=== PATIENT | female | born 1980 | race Caucasian/White ===

== ENCOUNTER 2017-07-17 15:25 | Emergency (ER) | payer SELFPAY ==
[2017-07-17 15:31] VITALS: BP 131/74
--- NOTE | 2017-07-17 15:50 | UC ---
Abdominal Pain Female HPI - HPI Summary HPI Summary: 37 FEMALE PRESENTS WITH SEVERE LLQ PAIN. I WILL SEND HER TO THE ER TO RULE OUT DIVERTICULITIS. - History of Current Complaint Chief Complaint: UCAbdominalPain Stated Complaint: ABDOMINAL PAIN Time Seen by Provider: 07/17/17 15:45 Hx Obtained From: Patient Hx Last Menstrual Period: 06/22/17 Onset/Duration: Sudden Onset Severity Initially: Moderate Severity Currently: Moderate Pain Scale Used: 0-10 Numeric - 8 Location: Discrete At: RLQ Character: Sharp, Tearing Aggravating Factor(s): Nothing Alleviating Factor(s): Nothing Allergies/Adverse Reactions: Allergies Allergy/AdvReac Type Severity Reaction Status Date / Time No Known Allergies Allergy Verified 07/17/17 16:22 PMH/Surg Hx/FS Hx/Imm Hx Previously Healthy: Yes - Surgical History Surgical History: None Surgery Procedure, Year, and Place: ; left 3rd finger pins placed - Family History Known Family History: Positive: None - Social History Alcohol Use: Occasionally Alcohol Amount: 2 beers a week Substance Use Type: None Smoking Status (MU): Light Every Day Tobacco Smoker Type: Cigarettes Amount Used/How Often: 3 cigs daily - Immunization History Most Recent Influenza Vaccination: fall Review of Systems Constitutional: Negative Skin: Negative Eyes: Negative ENT: Negative Respiratory: Negative Cardiovascular: Negative Gastrointestinal: Abdominal Pain - LLQ Genitourinary: Negative Motor: Negative Neurovascular: Negative Musculoskeletal: Negative Neurological: Negative Psychological: Negative All Other Systems Reviewed And Are Negative: Yes Physical Exam Triage Information Reviewed: Yes Vital Signs: Initial Vital Signs Temp 37.0 C 07/17/17 15:28 Pulse 96 07/17/17 15:28 Resp 20 07/17/17 15:28 BP 131/74 07/17/17 15:28 Pulse Ox 100 07/17/17 15:28 Vital Signs Reviewed: Yes Eye Exam: Normal ENT Exam: Normal Dental Exam: Normal Neck exam: Normal Neck: Positive: 1 Respiratory Exam: Normal Cardiovascular Exam: Normal Abdomen Description: Positive: Other: - LLQ PAIN Musculoskeletal Exam: Normal Neurological Exam: Normal Psychological Exam: Normal Skin Exam: Normal Abd Pain Female Course/Dx - Differential Dx/Diagnosis Provider Diagnoses: LLQ PAIN Discharge - Discharge Plan Condition: Stable Disposition: HOME Patient Education Materials: Acute Abdominal Pain (ED) Referrals: No Primary Care Phys,NOPCP [Primary Care Provider] - Additional Instructions: PATIENT SUGGESTED TO GO TO ER TO RULE OUT DIVERTICULITIS.
== END 2017-07-17 16:00 | disposition home or self-care (01) ==
LOC: UCEAST 15:25
DX: R10.32 Left lower quadrant pain (principal); F17.210 Nicotine dependence, cigarettes, uncomplicated
CPT/HCPCS: 99211; G0463

== ENCOUNTER 2017-07-17 16:16 | Emergency (ER) | payer SELFPAY ==
[2017-07-17] MEDS ORDERED: Ondansetron ODT TAB* 4 MG PO ONE (17:49)
[2017-07-17 18:38] LABS: Hematocrit 42 % (35-47); Hemoglobin 14.5 g/dl (12.0-16.0); Mean Corpuscular HGB Conc 34 g/dl (31-36); Mean Corpuscular Hemoglobin 32 pg (27-31); Mean Corpuscular Volume 92 fL (80-97); Mean Platelet Volume 7 um3 (7.4-10.4); Red Cell Distribution Width 13 % (10.5-15); White Blood Count 11.6 10^3/ul (3.5-10.8)
[2017-07-17 18:56] LABS: ALT 14 U/L (7-52); AST 14 U/L (13-39); Albumin 4.5 g/dL (3.2-5.2); Alkaline Phosphatase 59 U/L (34-104); Anion Gap 6 mmol/L (2-11); BUN/Creatinine Ratio 15.3 (8-20); Blood Urea Nitrogen 13 mg/dL (6-24); C Reactive Protein 5.16 mg/L (< 5.00); CO2 Carbon Dioxide 24 mmol/L (22-32); Calcium 9.4 mg/dL (8.6-10.3); Chloride 105 mmol/L (101-111); EGFR African American 96.3 (>60); EGFR Non-African American 74.9 (>60); Globulin 3.4 g/dL (2-4); Glucose 90 mg/dL (70-100); Lipase 18 U/L (11.0-82.0); Sodium 135 mmol/L (133-145); Total Protein 7.9 g/dL (6.4-8.9)
[2017-07-17 20:14] LABS: Urine Bacteria Absent (Absent)
[2017-07-17 20:15] LABS: Urine Bilirubin Negative (Negative); Urine Glucose Negative (Negative); Urine Nitrite Negative (Negative)
[2017-07-17] MEDS ORDERED: Ketorolac INJ* 30 MG/ML 1 ML VIAL IV ONE (20:20)
[2017-07-17] MEDS ORDERED: NS 0.9% 1000 ML* 2,000 ML IV ONE (20:20)
[2017-07-17] MEDS ORDERED: Ondansetron INJ* 2 MG/ML VIAL IV ONE (20:20)
[2017-07-17 20:42] VITALS: BP 127/87
--- NOTE | 2017-07-17 21:25 | RAD ---
HISTORY: Lower abdominal pain, left lower quadrant pain COMPARISONS: None TECHNIQUE: Multiple transverse and longitudinal ultrasound images were obtained of the pelvis using grayscale, color Doppler, and spectral Doppler imaging using the endovaginal transducer. FINDINGS: UTERUS: The uterus measures 8.6 x 4.1 x 5.1 cm. There is a myometrial and some mucosal fibroid of the posterior body towards the fundus, measuring 2.3 x 2.3 x 2.3 cm ENDOMETRIUM: The endometrial stripe is smooth. The endometrium measures 0.3 cm in thickness. CUL-DE-SAC: There is no free fluid within the cul-de-sac. RIGHT OVARY: The right ovary measures 1.9 x 1.4 x 1.4 cm. Normal arterial and venous waveforms are identifiable within the ovary on spectral Doppler imaging. LEFT OVARY: The left ovary measures 2.7 x 1.9 x 1.5 cm. Normal arterial and venous waveforms are identifiable within the ovary on spectral Doppler imaging. BLADDER: The bladder is not well visualized. OTHER: None IMPRESSION: FIBROID UTERUS. NO SONOGRAPHIC FEATURES OF TORSION. PLEASE NOTE THAT PARTIAL OR INTERMITTENT TORSION MAY BE SONOGRAPHICALLY NORMAL.
[2017-07-17] MEDS ORDERED: Iohexol 300* (CONTRAST) 10 ML SDV IV ONE (22:36)
[2017-07-18] MEDS ORDERED: Omeprazole CAP* 20 MG PO ONE (00:56)
--- NOTE | 2017-07-18 01:04 | ED ---
Yovany Gaspar Nikita, scribed for Juan C Mendoza MD on 07/17/17 at 2017 . Abdominal Pain/Female - HPI Summary HPI Summary: This patient is a 37 year old F presenting to ED with a chief complaint of LLQ abdominal pain since 1 week ago. Before visit, pt was at [facility] for symptoms. Pt was sent to ED to r/o diverticulitis. The CC is described as constant with waxing and waning, sharp (yesterday), and causing pt to double over. Now, pain is present in RLQ and suprapubic region. The patient rates the pain >10/10 in severity at its worst. Usually pain rates at 3-5/10. Symptoms aggravated by laying on L side and movement. Symptoms alleviated by nothing. Patient reports N /V due to acid reflux. Patient denies vaginal discharge, fever, chills, bowel symptoms, melena, urinary symptoms (dysuria), cough, congestion, and rashes. LMP is Jun 26. Pt has 2 children. PSHx of . Pt denies hx of ovarian cysts. - History of Current Complaint Chief Complaint: EDAbdPain Stated Complaint: ABD PAIN/VOMITING Time Seen by Provider: 07/17/17 20:01 Hx Obtained From: Patient Hx Last Menstrual Period: 06/26/17 Onset/Duration: Sudden Onset, Lasting Weeks - 1 week ago Timing: Constant - waxing and waning Severity Initially: Moderate Severity Currently: Moderate - at worst, pain is >10/10 Pain Intensity: 5 Pain Scale Used: 0-10 Numeric Location: Discrete At: RLQ, Discrete At: LLQ - where pain is worst, Suprapubic Radiates: No Character: Sharp, Other: - causing pt to "double over" Aggravating Factor(s): Movement, Other: - laying on L side Alleviating Factor(s): Nothing Associated Signs and Symptoms: Positive: Other: - Patient reports N/V due to acid reflux. Patient denies vaginal discharge, fever, chills, bowel symptoms, melena, urinary symptoms (dysuria), cough, congestion, and rashes. Allergies/Adverse Reactions: Allergies Allergy/AdvReac Type Severity Reaction Status Date / Time No Known Allergies Allergy Verified 07/17/17 16:22 PMH/Surg Hx/FS Hx/Imm Hx Endocrine/Hematology History: Denies: Hx Diabetes, Hx Thyroid Disease Cardiovascular History: Denies: Hx Hypertension Respiratory History: Reports: Hx Asthma Denies: Hx Chronic Obstructive Pulmonary Disease (COPD) GI History: Denies: Hx Ulcer - Surgical History Surgery Procedure, Year, and Place: ; left 3rd finger pins placed Infectious Disease History: No Infectious Disease History: Denies: Hx Clostridium Difficile, Hx Hepatitis, Hx Human Immunodeficiency Virus (HIV), Hx of Known/Suspected MRSA, Hx Shingles, Hx Tuberculosis, Hx Known/ Suspected VRE, Hx Known/Suspected VRSA, History Other Infectious Disease, Traveled Outside the [place] in Last 30 Days - Family History Known Family History: Negative: Cardiac Disease, Hypertension, Diabetes - Social History Alcohol Use: Occasionally Alcohol Amount: 2 beers a week Substance Use Type: Reports: None Smoking Status (MU): Light Every Day Tobacco Smoker Type: Cigarettes Amount Used/How Often: 3 cigs daily Review of Systems Negative: Fever, Chills Positive: Other - Negative: congestion Negative: Cough Positive: Abdominal Pain - RLQ, suprapubic region, worst at LLQ, Vomiting, Nausea, Other - Negative: bowel symptoms, melena Positive: no symptoms reported. Negative: dysuria, discharge Negative: Rash All Other Systems Reviewed And Are Negative: Yes Physical Exam - Summary Physical Exam Summary: General: well-appearing, mild to moderate pain distress Skin: warm, color reflects adequate perfusion, dry Head: normal Eyes: EOMI, SOFYA ENT: normal Neck: supple, nontender Respiratory: CTA, breath sounds present Cardiovascular: RRR Abdomen: soft, Tender in LLQ, RLQ, and suprapubic region, worst in LLQ Bowel: positive bowel sounds : no vaginal discharge Musculoskeletal: normal, strength/ROM intact, No CVA tenderness Neurological: normal, sensory/motor intact, A&O x3 Psychological: affect/mood appropriate Pt is not worried about an STI. Triage Information Reviewed: Yes Vital Signs On Initial Exam: Initial Vitals Temp Pulse Resp BP Pulse Ox 98.4 F 90 16 135/87 98 07/17/17 16:19 07/17/17 16:19 07/17/17 16:19 07/17/17 16:19 07/17/17 16:19 Vital Signs Reviewed: Yes Diagnostics - Vital Signs Vital Signs Temp Pulse Resp BP Pulse Ox 07/17/17 19:27 96.9 F 63 17 120/93 98 07/17/17 16:19 98.4 F 90 16 135/87 98 - Laboratory Lab Results: Lab Results 07/17/17 07/17/17 07/17/17 Range/Units 18:29 18:29 18:29 WBC 11.6 H (3.5-10.8) 10^3/ul RBC 4.60 (4.0-5.4) 10^6/ul Hgb 14.5 (12.0-16.0) g/dl Hct 42 (35-47) % MCV 92 (80-97) fL MCH 32 H (27-31) pg MCHC 34 (31-36) g/dl RDW 13 (10.5-15) % Plt Count 327 (150-450) 10^3/ul MPV 7 L (7.4-10.4) um3 Neut % (Auto) 63.6 (38-83) % Lymph % (Auto) 29.0 (25-47) % [place] % (Auto) 5.6 (1-9) % Eos % (Auto) 1.3 (0-6) % Baso % (Auto) 0.5 (0-2) % Absolute Neuts (auto) 7.4 (1.5-7.7) 10^3/ul Absolute Lymphs (auto) 3.4 (1.0-4.8) 10^3/ul Absolute Monos (auto) 0.7 (0-0.8) 10^3/ul Absolute Eos (auto) 0.1 (0-0.6) 10^3/ul Absolute Basos (auto) 0.1 (0-0.2) 10^3/ul Absolute Nucleated RBC 0 10^3/ul Nucleated RBC % 0 Sodium 135 (133-145) mmol/L Potassium 4.0 (3.5-5.0) mmol/L Chloride 105 (101-111) mmol/L Carbon Dioxide 24 (22-32) mmol/L Anion Gap 6 (2-11) mmol/L BUN 13 (6-24) mg/dL Creatinine 0.85 (0.51-0.95) mg/dL Est GFR ( Amer) 96.3 (>60) Est GFR (Non-Af Amer) 74.9 (>60) BUN/Creatinine Ratio 15.3 (8-20) Glucose 90 (70-100) mg/dL Lactic Acid 1.0 (0.5-2.0) mmol/L Calcium 9.4 (8.6-10.3) mg/dL Total Bilirubin 0.40 (0.2-1.0) mg/dL AST 14 (13-39) U/L ALT 14 (7-52) U/L Alkaline Phosphatase 59 (34-104) U/L C-Reactive Protein 5.16 H (< 5.00) mg/L Total Protein 7.9 (6.4-8.9) g/dL Albumin 4.5 (3.2-5.2) g/dL Globulin 3.4 (2-4) g/dL Albumin/Globulin Ratio 1.3 (1-3) Lipase 18 (11.0-82.0) U/L Result Diagrams: 07/17/17 18:29 07/17/17 18:29 Lab Statement: Any lab studies that have been ordered have been reviewed, and results considered in the medical decision making process. - CT abd/pel CT Interpretation Completed By: Radiologist - No bowel obstruction, colitis, diverticulitis, free fluid or free air. Normal appendix. Unremarkable pancreas, kidneys, and gallbladder. Small right renal stone seen on 10/19/03 no longer seen. Subcentimeter right hepatic cyst or hemangioma. 1.1 cm corpus luteum left ovary. ED physician has reviewed this radiology report and agrees. - Ultrasound No standard instances Ultrasound Interpretation Completed By: Radiologist - Transvaginal US: FIBROID UTERUS. NO SONOGRAPHIC FEATURES OF TORSION. PLEASE NOTE THAT PARTIAL OR INTERMITTENT TORSION MAY BE SONOGRAPHICALLY NORMAL. ED physician has reviewed this radiology report and agrees. Abdominal Pain Fem Course/Dx - Course Course Of Treatment: This patient is a 37 year old F presenting to ED with a chief complaint of LLQ abdominal pain since 1 week ago. Before visit, pt was at [facility] for symptoms. Pt was sent to ED to r/o diverticulitis. The CC is described as constant with waxing and waning, sharp (yesterday), and causing pt to double over. Now, pain is present in RLQ and suprapubic region. The patient rates the pain >10/10 in severity at its worst. Usually pain rates at 3-5/10. Symptoms aggravated by laying on L side and movement. Symptoms alleviated by nothing. Patient reports N/V due to acid reflux. Patient denies vaginal discharge, fever, chills, bowel symptoms, melena, urinary symptoms (dysuria), cough, congestion, and rashes. Transvaginal US reveals FIBROID UTERUS. NO SONOGRAPHIC FEATURES OF TORSION. PLEASE NOTE THAT PARTIAL OR INTERMITTENT TORSION MAY BE SONOGRAPHICALLY NORMAL. Abdomen/Pelvis CT reveals No bowel obstruction, colitis, diverticulitis, free fluid or free air. Normal appendix. Unremarkable pancreas, kidneys, and gallbladder. Small right renal stone seen on 10/19/03 no longer seen. Subcentimeter right hepatic cyst or hemangioma. 1.1 cm corpus luteum left ovary. ED physician has reviewed this radiology report and agrees. In the ED course, pt was given fluids and pain medication. Medications reviewed. BP noted and advised to follow up with PCP. Pt will be discharged. Pt is agreeable with this plan. DISCUSSED RESULTS WITH PATIENT. NO EVIDENCE OF INFECTION. WILL TAKE IBUPROFEN OR ACETAMINOPHEN OTC. WILL TREAT FOR GERD; PATIENTHAS BEEN HAVING EPIGASTIC BURNING/GERD SX. F/U PMD; RETURN IF WORSE. NO CRITICAL CARE TIME. - Diagnoses Provider Diagnoses: Lower abdominal pain, GERD (gastroesophageal reflux disease) Discharge - Discharge Plan Condition: Stable Disposition: HOME Prescriptions: Omeprazole CAP* [Prilosec CAP* 20 MG] 20 mg PO BID #30 [email or web address]. Patient Education Materials: Abdominal Pain (ED), Gastroesophageal Reflux Disease (ED) Referrals: [facility] [[place]] No Primary Care Phys,NOPCP [Primary Care Provider] - Additional Instructions: FOLLOW UP WITH YOUR DOCTOR. RETURN TO THE EMERGENCY DEPARTMENT FOR ANY WORSENING OF YOUR CONDITION; PAIN, FEVER, VOMITING, YOU FEEL ILL OR QUESTIONS OR CONCERNS. The documentation as recorded by the Yovany mccoy Nikita accurately reflects the service I personally performed and the decisions made by me, Juan C Mendoza MD.
--- NOTE | 2017-07-18 07:52 | RAD ---
CLINICAL HISTORY: Lower abdominal pain, left lower quadrant pain, suprapubic pain, right lower quadrant pain COMPARISON: None TECHNIQUE: Multiple contiguous axial CT scans were obtained of the abdomen and pelvis after the administration of intravenous contrast. Coronal and sagittal multiplanar reformations are submitted for review. FINDINGS: LUNG BASES: The lung bases are clear. LIVER: The liver is diffusely low in attenuation compared to the spleen. There are no focal hepatic parenchymal masses. There is a simple cyst of the right lobe. BILE DUCTS: There is no intrahepatic or extrahepatic biliary dilatation. GALLBLADDER: The gallbladder is normal, without pericholecystic inflammatory change. PANCREAS: The pancreas is normal, without mass or ductal dilatation. SPLEEN: Normal in size and appearance. UPPER GI TRACT: Evaluation of the gastrointestinal tract is limited by incomplete gastric distention. The upper GI tract is unremarkable. SMALL BOWEL AND MESENTERY: The small bowel is normal in contour, course, and caliber. There is no obstruction or dilatation. COLON: The colon is normal in contour, course, caliber. There is no pericolonic inflammatory change. There is a tubular, vermiform, hollow viscus that is blind ending, and originates from the cecum, consistent with a normal appendix. There is no periappendiceal inflammatory change. This is best seen on axial images 51 through 61 ADRENALS: Normal bilaterally. KIDNEYS: The kidneys are normal in shape, size, contour, and axis. There is no hydronephrosis or nephrolithiasis. BLADDER: The bladder is smooth in contour. PELVIC ORGANS: There is left ovarian cyst. AORTA: The aorta is normal. IVC: Unremarkable LYMPH NODES: There is no lymphadenopathy by size criteria. ABDOMINAL WALL: There is a small fat-containing umbilical hernia. BONES AND SOFT TISSUES: There are mild diffuse degenerative changes. OTHER: None IMPRESSION: 1. NORMAL APPENDIX. 2. FATTY LIVER. 3. NO ACUTE CT PATHOLOGY OF THE VISUALIZED ABDOMEN OR PELVIS.
== END 2017-07-18 01:23 | disposition home or self-care (01) ==
LOC: ED 16:16
DX: R10.32 Left lower quadrant pain (principal); K21.9 Gastro-esophageal reflux disease without esophagitis; F17.210 Nicotine dependence, cigarettes, uncomplicated; K76.0 Fatty (change of) liver, not elsewhere classified; D25.9 Leiomyoma of uterus, unspecified
CPT/HCPCS: 36415; 74177; 76830; 80053; 81003; 81015; 83605; 83690; 84702; 85025; 86140; 96360; 96374; 96375; 99283; A9270-GY; J1885; J2405; Q9967

== ENCOUNTER 2018-04-07 15:41 | Emergency (ER) | payer SELFPAY ==
[2018-04-07 18:01] LABS: ABS Basophils 0 10^3/ul (0-0.2); ABS Eosinophils 0.2 10^3/ul (0-0.6); ABS Monocytes 0.7 10^3/ul (0-0.8); ABS Neutrophils 7.8 10^3/ul (1.5-7.7); ABS Nucleated RBC 0 10^3/ul; Eosinophil % 1.4 % (0-6); Hematocrit 39 % (35-47); Hemoglobin 13.4 g/dl (12.0-16.0); Lymphocyte % 25.8 % (25-47); Mean Corpuscular HGB Conc 34 g/dl (31-36); Mean Corpuscular Hemoglobin 31 pg (27-31); Mean Corpuscular Volume 92 fL (80-97); Mean Platelet Volume 7.4 um3 (7.4-10.4); Nucleated Red Blood Cells % 0; Platelet Count 341 10^3/ul (150-450); Red Blood Count 4.28 10^6/ul (4.0-5.4); Red Cell Distribution Width 13 % (10.5-15); White Blood Count 11.7 10^3/ul (3.5-10.8)
[2018-04-07 18:19] LABS: EGFR Non-African American 66.6 (>60)
[2018-04-07 19:45] LABS: Urine Appearance Clear; Urine Blood 1+ (Negative); Urine Color Yellow; Urine Ketones Negative (Negative); Urine Protein Negative (Negative); Urine Red Blood Cell Trace(0-2/hpf) (Absent); Urine Specific Gravity 1.012 (1.010-1.030); Urine Urobilinogen Negative (Negative); Urine White Blood Cell Trace(0-5/hpf) (Absent)
[2018-04-07 20:30] VITALS: BP 119/80
--- NOTE | 2018-04-07 21:18 | RAD ---
CLINICAL HISTORY: Right flank pain x3 months COMPARISON: CT abdomen pelvis July 17, 2017 TECHNIQUE: Noncontrast CT examination of the abdomen and pelvis from the lung bases through the initial tuberosities. FINDINGS: VISUALIZED LUNG BASES: The visualized lung bases are grossly clear. There is no pleural effusion. ABDOMEN AND PELVIS: Evaluation of the solid organs and vasculature is limited without intravenous contrast. Subcentimeter hypoattenuating foci in the liver have Hounsfield units compatible with simple cysts and are unchanged prior CT examination. The liver is otherwise homogenous in attenuation. The spleen, pancreas and adrenal glands are grossly normal in appearance. The gallbladder is normal. The kidneys are normal in appearance without focal mass, calcification or signs of hydronephrosis. Evaluation of the gastrointestinal tract is limited without oral contrast. The small and large bowel are not distended.The patient's normal appendix is identified in the right lower quadrant measuring just under 6 mm in diameter with gas in the lumen. There is no gross retroperitoneal or mesenteric lymphadenopathy. The pelvic viscera is normal in appearance. The abdominal aorta and iliac arteries are normal in course and diameter. Degenerative changes of the lower thoracic spine include loss of intervertebral disc height and anterior marginal osteophyte formation at T8-T10.There are no sinister bone lesions. IMPRESSION: 1. The appendix appears normal. 2. There are no renal calculi or signs of obstructive uropathy.
[2018-04-07] MEDS ORDERED: Ketorolac INJ* 60 MG/2 ML VIAL IM ONE (21:20)
[2018-04-07] MEDS ORDERED: Ketorolac INJ* 60 MG/2 ML VIAL ONE (21:21)
--- NOTE | 2018-04-15 10:18 | ED ---
Margaret Gaspar Julia, scribed for Neptali Boston MD on 04/07/18 at 2002 . Abdominal Pain/Female - HPI Summary HPI Summary: This patient is a 37 year old F presenting to [facility] with a chief complaint of dull right flank pain for the past three months recently worsening with intermittent sharp pain. Pain is 4/10 in severity. Denies nausea, vomiting, and diarrhea. PMhx of kidney stones. - History of Current Complaint Chief Complaint: EDFlankPain Stated Complaint: RT FLANK PAIN Time Seen by Provider: 04/07/18 19:01 Hx Obtained From: Patient Hx Last Menstrual Period: 06/26/17 Onset/Duration: Gradual Onset, Lasting Weeks Timing: Constant Pain Intensity: 4 Pain Scale Used: 0-10 Numeric Location: Flank Character: Sharp, Dull Associated Signs and Symptoms: Positive: Negative Allergies/Adverse Reactions: Allergies Allergy/AdvReac Type Severity Reaction Status Date / Time No Known Allergies Allergy Verified 04/07/18 15:50 PMH/Surg Hx/FS Hx/Imm Hx Endocrine/Hematology History: Denies: Hx Diabetes, Hx Thyroid Disease Cardiovascular History: Denies: Hx Hypertension Respiratory History: Reports: Hx Asthma Denies: Hx Chronic Obstructive Pulmonary Disease (COPD) GI History: Denies: Hx Ulcer History: Reports: Hx Kidney Stones - Surgical History Surgery Procedure, Year, and Place: ; left 3rd finger pins placed Infectious Disease History: No Infectious Disease History: Denies: Hx Clostridium Difficile, Hx Hepatitis, Hx Human Immunodeficiency Virus (HIV), Hx of Known/Suspected MRSA, Hx Shingles, Hx Tuberculosis, Hx Known/ Suspected VRE, Hx Known/Suspected VRSA, History Other Infectious Disease, Traveled Outside the [place] in Last 30 Days - Family History Known Family History: Negative: Cardiac Disease, Hypertension, Diabetes - Social History Alcohol Use: Occasionally Alcohol Amount: 2 beers a week Substance Use Type: Reports: None Smoking Status (MU): Light Every Day Tobacco Smoker Type: Cigarettes Amount Used/How Often: 3 cigs daily Review of Systems Negative: Fever Positive: Abdominal Pain. Negative: Vomiting, Diarrhea, Nausea Positive: flank pain All Other Systems Reviewed And Are Negative: Yes Physical Exam - Summary Physical Exam Summary: VITAL SIGNS: Reviewed. GENERAL: Patient is a well-developed and nourished female who is lying comfortable in the stretcher. Patient is not in any acute respiratory distress. HEAD AND FACE: No signs of trauma. No ecchymosis, hematomas or skull depressions. No sinus tenderness. EYES: PERRLA, EOMI x 2, No injected conjunctiva, no nystagmus. EARS: Hearing grossly intact. Ear canals and tympanic membranes are within normal limits. MOUTH: Oropharynx within normal limits. NECK: Supple, trachea is midline, no adenopathy, no JVD, no carotid bruit, no c- spine tenderness, neck with full ROM. CHEST: Symmetric, no tenderness at palpation LUNGS: Clear to auscultation bilaterally. No wheezing or crackles. CVS: Regular rate and rhythm, S1 and S2 present, no murmurs or gallops appreciated. ABDOMEN: Soft, R flank and R CVA tenderness. No signs of distention. No rebound no guarding, and no masses palpated. Bowel sounds are normal. EXTREMITIES: FROM in all major joints, no edema, no cyanosis or clubbing. NEURO: Alert and oriented x 3. No acute neurological deficits. Speech is normal and follows commands. SKIN: Dry and warm Triage Information Reviewed: Yes Vital Signs On Initial Exam: Initial Vitals Temp Pulse Resp BP Pulse Ox 98.6 F 82 17 124/89 99 04/07/18 15:44 04/07/18 15:44 04/07/18 15:44 04/07/18 15:44 04/07/18 15:44 Vital Signs Reviewed: Yes Diagnostics - Vital Signs Vital Signs Temp Pulse Resp BP Pulse Ox 04/07/18 17:25 98.6 F 63 16 121/71 98 04/07/18 15:44 98.6 F 82 17 124/89 99 - Laboratory Lab Results: Lab Results 04/07/18 04/07/18 04/07/18 Range/Units 17:56 17:56 19:27 WBC 11.7 H (3.5-10.8) 10^3/ul RBC 4.28 (4.0-5.4) 10^6/ul Hgb 13.4 (12.0-16.0) g/dl Hct 39 (35-47) % MCV 92 (80-97) fL MCH 31 (27-31) pg MCHC 34 (31-36) g/dl RDW 13 (10.5-15) % Plt Count 341 (150-450) 10^3/ul MPV 7.4 (7.4-10.4) um3 Neut % (Auto) 66.6 (38-83) % Lymph % (Auto) 25.8 (25-47) % [place] % (Auto) 5.8 (0-7) % Eos % (Auto) 1.4 (0-6) % Baso % (Auto) 0.4 (0-2) % Absolute Neuts (auto) 7.8 H (1.5-7.7) 10^3/ul Absolute Lymphs (auto) 3.0 (1.0-4.8) 10^3/ul Absolute Monos (auto) 0.7 (0-0.8) 10^3/ul Absolute Eos (auto) 0.2 (0-0.6) 10^3/ul Absolute Basos (auto) 0 (0-0.2) 10^3/ul Absolute Nucleated RBC 0 10^3/ul Nucleated RBC % 0 Sodium 137 L (139-145) mmol/L Potassium 4.1 (3.5-5.0) mmol/L Chloride 106 (101-111) mmol/L Carbon Dioxide 24 (22-32) mmol/L Anion Gap 7 (2-11) mmol/L BUN 11 (6-24) mg/dL Creatinine 0.94 (0.51-0.95) mg/dL Est GFR ( Amer) 85.7 (>60) Est GFR (Non-Af Amer) 66.6 (>60) BUN/Creatinine Ratio 11.7 (8-20) Glucose 96 (70-100) mg/dL Calcium 9.0 (8.6-10.3) mg/dL Total Bilirubin 0.40 (0.2-1.0) mg/dL AST 15 (13-39) U/L ALT 19 (7-52) U/L Alkaline Phosphatase 56 (34-104) U/L C-Reactive Protein 6.86 H (< 5.00) mg/L Total Protein 7.1 (6.4-8.9) g/dL Albumin 4.0 (3.2-5.2) g/dL Globulin 3.1 (2-4) g/dL Albumin/Globulin Ratio 1.3 (1-3) Lipase 24 (11.0-82.0) U/L Beta HCG, Quant < 0.60 mIU/mL Urine Color Yellow Urine Appearance Clear Urine pH 5.0 (5-9) Ur Specific [place] 1.012 (1.010-1.030) Urine Protein Negative (Negative) Urine Ketones Negative (Negative) Urine Blood 1+ A (Negative) Urine Nitrate Negative (Negative) Urine Bilirubin Negative (Negative) Urine Urobilinogen Negative (Negative) Ur Leukocyte Esterase Negative (Negative) Urine WBC (Auto) Trace(0-5/hpf) (Absent) Urine RBC (Auto) Trace(0-2/hpf) (Absent) Ur Squamous Epith Cells Present A (Absent) Urine Bacteria Absent (Absent) Urine Glucose Negative (Negative) Result Diagrams: 04/07/18 17:56 04/07/18 17:56 Lab Statement: Any lab studies that have been ordered have been reviewed, and results considered in the medical decision making process. - CT A/P CT Interpretation Completed By: Radiologist - 1. The appendix appears normal. 2. There are no renal calculi or signs of obstructive uropathy. ED Physician has reviewed this report. Abdominal Pain Fem Course/Dx - Course Course Of Treatment: Initially the patient was placed on a monitoring analyst. Blood test results without any significant abnormality except WBCs of 11.7, sodium 137. Urinalysis is negative for UTI. Abdominopelvic CT impression: See report. No acute pathology. In the ED course patient was given Toradol for the pain. Ibuprofen the patient had pelvic ultrasound, pelvic exam but she declined. I discussed all the findings and test results with the patient. Patient was instructed to return to the emergency room immediately if any of the symptoms return or worsens. Plan of care was discussed with the patient and understands and agrees. All questions were answered at patient satisfaction. There were no further complaints or concerns. Lung exam before discharge: CTA B /L. Good air exchange. No wheezing or crackles heard. CVS: S1 and S2 present. No murmurs appreciated. Patient is alert and oriented x 3. Patient is hemodynamically stable. Patient will be discharged home with follow up PCP in the next 2-3 days - Diagnoses Differential Diagnosis: Positive: Appendicitis, Constipation Provider Diagnoses: Flank pain Discharge - Sign-Out/Discharge Documenting (check all that apply): Discharge/Admit/Transfer - Discharge Plan Condition: Stable Disposition: HOME Patient Education Materials: Flank Pain (ED) Referrals: [facility] [place] PHYSICIAN REFERRAL [Outside] - 2 Days (Contact this number to find a primary care physician) Additional Instructions: RETURN TO THE EMERGENCY DEPARTMENT FOR ANY WORSENING OR NEW SYMPTOMS. - Billing Disposition and Condition Condition: STABLE Disposition: Home The documentation as recorded by the Margaret mccoy Julia accurately reflects the service I personally performed and the decisions made by Darvin mckeon Walter, MD.
== END 2018-04-07 21:28 | disposition home or self-care (01) ==
LOC: ED 15:41
DX: R10.9 Unspecified abdominal pain (principal); F17.210 Nicotine dependence, cigarettes, uncomplicated; Z87.442 Personal history of urinary calculi
CPT/HCPCS: 36415; 74176; 80053; 81003; 81015; 83690; 84702; 85025; 86140; 87086; 96372; 99283; J1885